=== PATIENT | male | born 1965 | race Caucasian/White ===

== ENCOUNTER → 2020-01-19 | Outpatient (CLI) | payer OTHER ==
[~2020-01-19] MED LIST: DIFLUCAN150 MG PO; DOXYCYCLINE 10100 M1 PO; HCTZ OR; LISINOPRIL40 MG PO; MEDROLDOSEPACK PO; NAPHCON-A EYE D15 ML OP
== END ==
LOC: LAB 12:23
PROVIDERS: ATTEND Student in an Organized Health Care Education/Training Program
DX: Z01.818 Encounter for other preprocedural examination (principal); Z11.59 Encounter for screening for other viral diseases

== ENCOUNTER → 2020-01-23 | Outpatient (CLI) | payer OTHER ==
--- NOTE | 2020-01-24 16:07 | PATH ---
[facility] [place] [address] PATHOLOGY RPT PROCEDURE Name: ADOLFO MALIK Room #: REG [facility] MThuy.#: [id number] Admission: 01/23/20 Date of : 69 Discharge: Report #: [id number] Path Case #: [id number] [facility] Accession Number: [id number] . 01 Material submitted: . PART A: colon - RANDOM BIOPSY RIGHT COLON R/O CROHN'S DISEASE. Modifiers: right PART B: colon - RANDOM BIOPSY LEFT COLON R/O CROHN'S DISEASE. Modifiers: left PART C: colon - SIGMOID COLON POLYP X2. Modifiers: sigmoid PART D: rectum - RECTAL POLYP X2 . 01 Clinical history: . Diarrhea, colon polyps, colitis . 02 Diagnosis: A. Large intestine mucosa, right colon rule out Crohn's disease, endoscopic biopsy: - Mild active colitis involving all fragments sampled, see comment. - Negative for dysplasia or malignancy. . B. Large intestine mucosa, left colon rule out Crohn's disease, endoscopic biopsy: - Mild active colitis involving all fragments sampled, see comment. - Negative for dysplasia or malignancy. . C. Polyp x2, sigmoid colon polyp, endoscopic biopsy: - All fragments showing inflamed hyperplastic polyps. - Negative for dysplasia. . D. Polyp x2, rectal polyp, endoscopic biopsy: - All fragments showing inflamed hyperplastic polyps. - Negative for dysplasia. (IUV:danelle; 01/24/2020) S 01/24/2020 1408 Local . 02 Comment: Examination shows an expanded lamina propria along with cryptitis as well as rare crypt abscess formation within all fragments sampled designated as "right colon" and "left colon". Subtle rare architectural abnormalities are evident as well. Overall findings may be suggestive of involvement by inflammatory bowel disease (including Crohn's as well as ulcerative colitis), medication/drug induced colitis, active diverticulitis, as well as acute colitis due to other etiologies. There are no granulomata present. Please correlate clinically and follow-up as indicated. (IUV:danelle; 01/24/2020) . [address] [address] PATHOLOGY RPT PROCEDURE Name: ADOLFO MALIK Room #: REG ROJAS Carrasquillo#: [id number] Admission: 01/23/20 Date of : 69 Discharge: Report #: [id number] Path Case #: [id number] Electronically signed: . Jessica Morfin MD, Pathologist NPI- [id number] . 01 Gross description: . A. The specimen is received in formalin labeled "Adolfo Malik, random BX right colon rule out Crohn's disease" and consists of multiple fragments of pink-gonsalves tissue measuring 1.1 x 0.4 x 0.2 cm in aggregate which are entirely submitted in A1. . B. The specimen is received in formalin labeled "Adolfo Malik, random BX left colon rule out Crohn's disease" and consists of multiple fragments of pink-gonsalves tissue measuring 0.9 x 0.6 x 0.2 cm in aggregate which are entirely submitted in B1. . C. The specimen is received in formalin labeled "[place], Adolfo, sigmoid colon polyp x2" and consists of 2 polypoid segmenst of pink-gonsalves tissue measuring 1.1 x 0.6 x 0.3 cm and 9.1 x 0.5 x 0.4 cm. They are trisected and entirely submitted in C1. . D. The specimen is received in formalin labeled "Adolfo Malik, rectal polyp x2" and consists of 2 polypoid segments of gonsalves tissue measuring 0.9 x 0.4 x 0.3 cm and 1.2 x 0.5 x 0.4 cm. They are trisected and entirely submitted in D1. (HILDA; 01/23/2020) JFQ/LEE 01/23/2020 1748 Local . 02 Pathologist provided ICD-10: K52.9, K63.5, K62.1, R19.7 . 02 CPT . 141451, 068205, [id number], [id number] Specimen Comment: A courtesy copy of this report has been sent to [phone], [phone] Specimen Comment: [id number] Specimen Comment: Report sent to / DR XIE Performed at: [address] [facility] [address], [place], [place] [id number] MD Stevie Durham MD Phone: [phone] Performed at: [address] [facility] [address] [id number] MD Jessica Morfin MD Phone: [phone]
== END | disposition home or self-care (01) ==
LOC: GI
PROVIDERS: ATTEND Internal Medicine Gastroenterology
DX: Z12.11 Encounter for screening for malignant neoplasm of colon (principal); K52.9 Noninfective gastroenteritis and colitis, unspecified; K51.40 Inflammatory polyps of colon without complications; K62.1 Rectal polyp; K63.89 Other specified diseases of intestine; Z98.890 Other specified postprocedural states; Z79.899 Other long term (current) drug therapy; Z88.8 Allergy status to other drugs, medicaments and biological substances
CPT/HCPCS: 62110; 62900